=== PATIENT | male | born 1975 | race Two or more races ===

== ENCOUNTER 2018-10-11 08:05 | Emergency (ER) | payer MEDICAID ==
[~2018-10-11] VITALS: Ht 170.2 cm; Wt 79.4 kg
[2018-10-11 08:37] LABS: BASOPHILS # (AUTO) 0.1 /CMM (0.0-0.2); BASOPHILS % (AUTO) 1.1 % (0.0-2.0); EOSINOPHILS % (AUTO) 0.6 % (0.0-6.0); HEMATOCRIT 41 % (39-51); HEMOGLOBIN 13.8 g/dL (13.5-17.5); LYMPHOCYTES # (AUTO) 2.7 /CMM (0.8-4.8); LYMPHOCYTES % (AUTO) 46.5 % (20.0-44.0); MEAN CORPUSCULAR HGB CONC 33 g/dl (31.0-36.0); MEAN CORPUSCULAR VOLUME 91 fL (80-96); MONOCYTES # (AUTO) 0.7 /CMM (0.1-1.30); MONOCYTES % (AUTO) 11.8 % (2.0-12.0); NEUTROPHILS # (AUTO) 2.4 /CMM (1.8-8.9); PLATELET COUNT (AUTO) 308 /CMM (150-450); WHITE BLOOD COUNT (AUTO) 5.9 K/uL (4.3-11.0)
[2018-10-11] MEDS ORDERED: MORPHINE SULFATE INJ 2 MG/ML DISP.SYRIN ONE ×2 (08:40→08:57)
[2018-10-11] MEDS ORDERED: ONDANSETRON HCL/PF 4 MG/2 ML VIAL ONE (08:41)
[2018-10-11 08:46] LABS: CALCIUM, SERUM 8.5 mg/dL (8.5-10.1); CREATININE 0.9 mg/dL (0.6-1.3); POTASSIUM 3.8 mmol/L (3.5-5.1)
[2018-10-11] MEDS: IV NS 0.9% 1,000 ML BAG IV ONE (08:47)
[2018-10-11] MEDS: MORPHINE SULFATE INJ 2 MG/ML DISP.SYRIN IV ONE (08:48)
[2018-10-11] MEDS: ONDANSETRON HCL/PF 4 MG/2 ML VIAL IVP ONE (08:49)
[2018-10-11 08:59] LABS: ALBUMIN 3.4 g/dL (3.4-5.0); BILIRUBIN,DIRECT 0.1 mg/dL (0.0-0.2); BILIRUBIN,TOTAL 0.5 mg/dL (0.2-1.0); TOTAL PROTEIN, SERUM 6.8 g/dL (6.4-8.2)
[2018-10-11 09:27] LABS: APPEARANCE,URINE Clear (CLEAR); BILIRUBIN,URINE Negative (NEGATIVE); BLOOD, URINE Trace-intact Ery/uL (NEGATIVE); COLOR,URINE Yellow (YELLOW); KETONES,URINE Negative (NEGATIVE); LEUKOCYTE ESTERASE ,URINE Negative (NEGATIVE); NITRITE, URINE Negative (NEGATIVE); PH,URINE 6.5 (5.0-8.0); PROTEIN,URINE Negative (NEGATIVE); UGLUCOSE Negative (NEGATIVE)
--- NOTE | 2018-10-11 09:31 | NUR ---
PATIENT AWAKE ALERT NOTED NO VOMITING NON DISTRESS ABLE TO AMBULATED TO BATHROOM URINE OBTAINED AND SEND TO LAB PAIN LEVEL 08/24 CONTINUE TO MONITOR Addendum: 10/11/18 at 1039 by DENISE PATIENT DC HOME INSTRUCTION GIVEN DEANNA MUNOZ STATED CALLED [facility] DONE PATIENT ABLE TO AMBULATED NON DIFFICUTIES AGREES TO FOLLOW UP PMD IN 1 DAY
[2018-10-11 09:34] LABS: BACTERIA,URINE Rare /HPF (None Seen); SQUAMOUS EPITHELIAL CELL,UR Rare /HPF (None Seen); WBC,URINE 0-2 /HPF (0-3)
--- NOTE | 2018-10-11 10:08 | NUR ---
CALLED HIS FRIEND [employer] FOR PICK ,PATIENT ASLEEP BUT AROUSABLE NOTED NO NAUSEA AND VOMITING PAIN LEVEL DOWN TO 5/10
[2018-10-11 10:42] VITALS: BP 140/76
== END 2018-10-11 10:44 | disposition home or self-care (01) ==
LOC: ER 08:05
DX: K85.90 Acute pancreatitis without necrosis or infection, unspecified (principal); Z88.8 Allergy status to other drugs, medicaments and biological substances
CPT/HCPCS: 36415; 74176; 80048; 80076; 81001; 83690; 85025; 96374; 96375; 99284; J2270; J2405; J7030; 81000-TC